=== PATIENT | female | born 1930 | race Caucasian/White ===

== ENCOUNTER 2016-10-22 08:20 | Day surgery (SDC) | payer BC ==
--- NOTE | ~2016-10-22 | EGD ---
EGD REPORT [facility] [address] [place] [id number] NAME: JUAN GALLARDO : 32 STATUS : REG [facility]#: [id number] AGE: 86 ADM/REG DATE : 10/22/16 MR#: [id number] REPORT SERV DATE: 10/22/16 DICTATED BY: JODI SMITH DATE: 10/22/16 REPORT STATUS : Draft [facility]ANS[facility]IBED BY: [facility] DATE: 10/22/16 [facility] Center Patient Name: Juan Gallardo Date of : 1930 Attending MD: JODI SMITH MD Procedure Date No Time: 10/22/2016 Procedure: Upper GI endoscopy Indications: Dysphagia, Heartburn; Omeprazole 20mg daily. Patient Profile: Informed consent was obtained from the patient by me prior to the procedure. Risks, benefits, and alternatives were discussed including the risk of bleeding, perforation, infection, reaction to medicine, missed lesion, and cardiopulmonary complications. Referring MD: URIEL RAMIREZ Medicines: Monitored Anesthesia Care Complications: No immediate complications. Procedure: Pre-Anesthesia Assessment: - ASA Grade Assessment: III - A patient with severe systemic disease. After obtaining informed consent, the endoscope was passed under direct vision. Throughout the procedure, the patient's blood pressure, pulse, and oxygen saturations were monitored continuously. The GIF [id number] was introduced through the mouth, and advanced to the second part of duodenum. The endoscope was withdrawn with careful examination all mucosal surfaces including retroflexion stomach. The upper GI endoscopy was accomplished without difficulty. The patient tolerated the procedure well. Findings: The examined duodenum was normal. Localized mildly erythematous mucosa was found in the gastric antrum, prominent fold. Biopsies were taken with a cold forceps for histology. The cardia, gastric body and gastric fundus (on retroflexion) were normal. A benign-appearing, intrinsic severe stenosis measuring 1 cm (in length) x 8 mm (inner diameter) was found. A TTS dilator was passed through the scope. Dilation with a 10-11-12 mm balloon (to a maximum balloon size of 12 mm) dilator was performed. Good results. The examined esophagus was normal. A 7 cm hiatus hernia was present. Impression: - Normal examined duodenum. - Erythematous mucosa in the antrum. Biopsied. EGD REPORT [place] [id number] [facility] [place]. [address] NAME: JUAN GALLARDO : [birth year] STATUS : REG [facility]#: [id number] AGE: 86 ADM/REG DATE : 10/22/16 MR#: [id number] REPORT SERV DATE: 10/22/16 DICTATED BY: JODI SMITH DATE: 10/22/16 REPORT STATUS : Draft TRANSCRIBED BY: [facility] DATE: 10/22/16 - Normal cardia, gastric body and gastric fundus. - Benign-appearing esophageal stricture. Dilated. - Normal esophagus. - Hiatus hernia. Recommendation: - Patient has a contact number available for emergencies. The signs and symptoms of potential delayed complications were discussed with the patient. Return to normal activities tomorrow. Written discharge instructions were provided to the patient. - Regular diet. - Continue present medications. - Await pathology results. - Increase Omeprazole to 20mg bid one month, then daily. - Restart Eliquis in 2 days; restart ASA today. - Liquid diet today. Procedure Code(s): --- Professional --- 51191, Esophagogastroduodenoscopy, flexible, transoral; with transendoscopic balloon dilation of esophagus (less than 30 mm diameter) 32110, Esophagogastroduodenoscopy, flexible, transoral; with biopsy, single or multiple Diagnosis Code(s): --- Professional --- K31.9, Disease of stomach and duodenum, unspecified K22.2, Esophageal obstruction K44.9, Diaphragmatic hernia without obstruction or gangrene R13.10, Dysphagia, unspecified R12, Heartburn CPT copyright 2013 [employer]. All rights reserved. The codes documented in this report are preliminary and upon licensed nurse practitioner review may be revised to meet current compliance requirements. JODI SMITH MD 10/22/2016 10:53 AM This report has been signed electronically. Number of Addenda: 0 Note Initiated On: 10/22/2016 10:25 AM Scope Withdrawal Time 0 hours 0 minutes 0 seconds EGD REPORT [facility] [address] [address] NAME: JUAN GALLARDO : 32 STATUS : REG [facility] PAT#: [id number] AGE: 86 ADM/REG DATE : 10/22/16 MR#: [id number] REPORT SERV DATE: 10/22/16 DICTATED BY: JODI SMITH DATE: 10/22/16 REPORT STATUS : Draft TRANSCRIBED BY: [facility] DATE: 10/22/16 [address] [id number]
[~2016-10-22 08:20] MED LIST: ACET500CAP PO; AMB10 PO; ANASPAZ0.125 MG PO; ANASPAZ0.125 MG SL; ASAB PO; B12250T PO; BEN25 PO; CIP5 PO; CYANO1000T PO; DITRO5 PO; ELIQUIS 2.5 MG2.5 MG PO; ELIQUIS 5 MG TAB5 MG PO; FIOR PO; FIORICET 50-301 EACH PO; FIORINALC PO; HALF81 PO; HYDROCHLOROT12.5 MG PO; KLONO5 PO; KLONOPIN WAF0.25 MG PO; LEVOTHROID112 MCG PO; LEVOTHYROXIN112 MCG PO; LEVOTHYROXIN125 MCG PO; LEVSINTAB PO; MACROBID PO; MEDS; NORV5 PO; OTC PROBIOTIC PO; OTC VITAMIN B-12 PO; OTC VITAMIN D PO; PRAVAC PO; PRILO PO; PRIN20 PO; PROZ10 PO; PYR100B PO; REMERON30 MG PO; SYN112 PO; SYN125 PO; TYLENOL SINUS PO; ULTRAM50 PO; VITAMIN B-121000 MC1 SL; VITAMIN B-1500 MG PO; VITAMIN D1000 UNI1 PO; VITAMIN D400 UNI1 PO; ZESTRIL20 MG PO; ZOFRAN ODT4 MG PO; ZOFRAN4 PO
== END 2016-10-22 23:59 | disposition home or self-care (01) ==
LOC: DMU 08:20
PROVIDERS: Internal Medicine Gastroenterology
PROC: 0DB68ZX Excision of Stomach, Via Natural or Artificial Opening Endoscopic, Diagnostic (ICD-10-PCS; principal; 2016-10-22 09:30)
PROC: 0D758ZZ Dilation of Esophagus, Via Natural or Artificial Opening Endoscopic (ICD-10-PCS; 2016-10-22 09:30)
DX: K29.50 Unspecified chronic gastritis without bleeding (principal); K22.2 Esophageal obstruction; K44.9 Diaphragmatic hernia without obstruction or gangrene; I10 Essential (primary) hypertension; I69.951 Hemiplegia and hemiparesis following unspecified cerebrovascular disease affecting right dominant side; E78.00 Pure hypercholesterolemia, unspecified; E03.9 Hypothyroidism, unspecified; K21.9 Gastro-esophageal reflux disease without esophagitis; F41.9 Anxiety disorder, unspecified; M19.90 Unspecified osteoarthritis, unspecified site; Z88.0 Allergy status to penicillin; Z88.2 Allergy status to sulfonamides; Z88.5 Allergy status to narcotic agent; Z88.6 Allergy status to analgesic agent; Z91.018 Allergy to other foods; Z95.0 Presence of cardiac pacemaker; Z90.49 Acquired absence of other specified parts of digestive tract; Z90.710 Acquired absence of both cervix and uterus; Z79.01 Long term (current) use of anticoagulants; Z79.82 Long term (current) use of aspirin; Z79.899 Other long term (current) drug therapy; Z98.890 Other specified postprocedural states
CPT/HCPCS: 88305; 88342; C1726; J2405